=== PATIENT | female | born 1965 | race Caucasian/White ===

== ENCOUNTER 2019-02-15 16:44 | Emergency (ER) | payer MEDICAID, OTHER ==
[~2019-02-15] VITALS: Ht 167.6 cm; Wt 72.7 kg
[2019-02-15] MEDS ORDERED: normal saline 1000ML IV soln IVB ONE (17:05)
[2019-02-15 18:03] LABS: BASOPHILS % (AUTO) 0.2 % (0-1); EOSINOPHILS # (AUTO) 0.1 X10'3 (0-0.9); EOSINOPHILS % (AUTO) 0.8 % (0-6); HEMATOCRIT 35.8 % (35.0-45.0); HEMOGLOBIN 11.9 g/dl (12.0-16.0); LYMPHOCYTES # (AUTO) 0.5 X10'3 (1.1-4.8); LYMPHOCYTES % (AUTO) 4.9 % (21-51); MEAN CORPUSCULAR HEMOGLOBIN 26.5 PG (27.0-31.0); MEAN CORPUSCULAR HGB CONC 33.3 g/dL (33.0-36.5); MEAN CORPUSCULAR VOLUME 79.8 FL (78-98); MEAN PLATELET VOLUME 7.9 FL (7.4-10.4); MONOCYTES # (AUTO) 0.4 X10'3 (0-0.9); MONOCYTES % (AUTO) 4.1 % (2-12); NEUTROPHILS # (AUTO) 9.1 X10'3 (1.8-7.7); PLATELET COUNT 229 X10'3 (140-440); RED BLOOD COUNT 4.48 X10'6 (4.20-5.60); RED CELL DISTRIBUTION WIDTH 14.9 % (11.5-14.5); WHITE BLOOD COUNT 10.1 X10'3 (4.5-11.0)
[2019-02-15 18:26] LABS: D-DIMER 20.64 MG/L FEU (0-0.50); PARTIAL THROMBOPLASTIN TIME 23 SECONDS (22-32)
[2019-02-15 18:34] LABS: ALANINE AMINOTRANSFERASE 24 U/L (12-78); ALBUMIN 2.9 G/DL (3.4-5.0); ALBUMIN/GLOBULIN RATIO 0.6 (1.1-1.5); ALKALINE PHOSPHATASE 125 IU/L (46-116); ANION GAP 12 (8-16); ASPARTATE AMINO TRANSFERASE 18 U/L (10-37); BILIRUBIN,TOTAL 0.4 MG/DL (0.1-1.0); BLOOD UREA NITROGEN 15 MG/DL (7-18); BUN/CREATININE RATIO 55.6 (6.6-38.0); CALCIUM 8.6 MG/DL (8.5-10.1); CHLORIDE 104 MMOL/L (99-107); CREATININE 0.27 MG/DL (0.40-0.90); GLUCOSE 120 MG/DL (70-104); POTASSIUM 3.8 MMOL/L (3.5-5.1); SODIUM 139 MMOL/L (135-145); TOTAL CARBON DIOXIDE 22.7 MMOL/L (24-32); TOTAL PROTEIN 7.4 G/DL (6.4-8.2); eGFR > 90 ML/MIN
[2019-02-15] MEDS ORDERED: iohexol 350MG/ML 100ml bottle IV ONE (18:55)
[2019-02-15 21:19] LABS: CLARITY,URINE CLOUDY (Clear); COLOR,URINE YELLOW (Yellow); GLUCOSE, URINE NEGATIVE (Neg); KETONES,URINE 15 mg/dl (Neg); LEUKOCYTE ESTERASE ,URINE TRACE (Neg); NITRITES, URINE POSITIVE (Neg); OCCULT BLOOD,URINE TRACE-INTACT (Neg); PH,URINE 5.5 (4.8-8.0); PROTEIN,URINE TRACE mg/dl (Neg); UROBILINOGEN,URINE 0.2 E.U/dL (0.2-1.0)
[2019-02-15 21:20] LABS: UA COLLECTION TYPE STRAIGHT CATH
[2019-02-15 21:24] LABS: SQUAMOUS EPITHELIAL CELL,UR FEW /LPF (FEW)
[2019-02-15 21:25] LABS: BACTERIA,URINE 4+ /HPF (Neg); RBC,URINE 0-2 /HPF (0-2); TRANSITIONAL EPI CELLS,URINE FEW /HPF
[2019-02-15] MEDS ORDERED: CEPH-572 PO (21:45)
[2019-02-15] MEDS ORDERED: CefTRIAXone 2gm/D5W 50ml 50 ML IV ONE (21:45)
[2019-02-15] MEDS ORDERED: HYDROcodone/acetaminophen 10/325mg tab PO ONE (21:50)
[2019-02-15] MEDS ORDERED: morphine 4 MG/ML inj SYRINge IV ONE (22:05)
--- NOTE | 2019-02-15 22:05 | NUR ---
WHEN ADMINISTERING MEDICATION, PT STATES NORCO CAUSES HER URINARY RETENTION. MD VIDALES MADE AWARE AND ORDER CANCELLED. VERBAL ORDER FOR MORPHINE 4MG IV X1 DOSE ORDERED PER .
[2019-02-15] MEDS ORDERED: ondansetron/PF 4mg/2ml inj IV ONE (22:20)
--- NOTE | 2019-02-15 22:20 | NUR ---
[facility] [phone]
--- NOTE | 2019-02-15 23:04 | NUR ---
HAVE ATTEMPTED NUMEROUS TIMES TO CONTACT PT AND MOTHER-NEITHER ARE ANSWERING. RASHAD LANDON RN MADE AWARE.
[2019-02-16] MEDS ORDERED: ibuprofen tablet 400 MG TABLET PO ONE (00:40)
--- NOTE | 2019-02-16 00:48 | NUR ---
PT STATES SHES NOT ALLERGIC TO IBUPROFEN
[2019-02-16 02:05] VITALS: BP 104/65
== END 2019-02-16 02:07 | disposition home or self-care (01) ==
LOC: ER 16:44
DX: N39.0 Urinary tract infection, site not specified (principal); R06.00 Dyspnea, unspecified; R06.4 Hyperventilation; Z88.1 Allergy status to other antibiotic agents; Z88.6 Allergy status to analgesic agent; Z79.899 Other long term (current) drug therapy; Z79.82 Long term (current) use of aspirin
CPT/HCPCS: 36415; 71045; 71275; 80053; 81001; 83880; 84484; 85025; 85379; 85610; 85730; 87077; 87088; 87186; 93005; 96365; 96375; 99284; J0696; J2270; J2405; J7040; Q9967

== ENCOUNTER 2019-08-09 14:31 | Emergency (ER) | payer MEDICAID, OTHER ==
[~2019-08-09] VITALS: Ht 167.6 cm; Wt 73.0 kg
[2019-08-09] MEDS ORDERED: CefTRIAXone/D5W-Rocephin 1gm 50 ML IV ONE (14:55)
[2019-08-09] MEDS ORDERED: normal saline 1000ML IV soln IVB ONE (14:55)
[2019-08-09 15:34] LABS: BASOPHILS % (AUTO) 0.2 % (0-1); EOSINOPHILS # (AUTO) 0.4 X10'3 (0-0.9); HEMATOCRIT 39.6 % (35.0-45.0); HEMOGLOBIN 12.9 g/dl (12.0-16.0); LYMPHOCYTES # (AUTO) 1.2 X10'3 (1.1-4.8); LYMPHOCYTES % (AUTO) 17.1 % (21-51); MEAN CORPUSCULAR HEMOGLOBIN 25.4 PG (27.0-31.0); MEAN CORPUSCULAR HGB CONC 32.5 g/dL (33.0-36.5); MEAN CORPUSCULAR VOLUME 78.2 FL (78-98); MEAN PLATELET VOLUME 7.6 FL (7.4-10.4); MONOCYTES # (AUTO) 0.4 X10'3 (0-0.9); MONOCYTES % (AUTO) 6.2 % (2-12); NEUTROPHILS % (AUTO) 70.5 % (42-75); PLATELET COUNT 247 X10'3 (140-440); RED BLOOD COUNT 5.07 X10'6 (4.20-5.60); RED CELL DISTRIBUTION WIDTH 19.6 % (11.5-14.5); WHITE BLOOD COUNT 7.1 X10'3 (4.5-11.0)
[2019-08-09] MEDS ORDERED: diphenhydrAMINE 50 mg/ml inj IV ONE (15:35)
[2019-08-09] MEDS ORDERED: morphine 4 MG/ML inj SYRINge IV ONE (15:35)
[2019-08-09] MEDS ORDERED: dexamethasone sod phosphate 10mg/ml inj IV STA (15:35)
--- NOTE | 2019-08-09 15:45 | NUR ---
lima elliott notified that pt is difficult to access for iv. earl decided meds would be changed to im.
[2019-08-09] MEDS ORDERED: dexamethasone sod phosphate 10mg/ml inj IM STA (15:48)
[2019-08-09] MEDS ORDERED: CefTRIAXone 1000mg IM Kit (w/lidocaine diluent) IM ONE (15:50)
[2019-08-09] MEDS ORDERED: diphenhydrAMINE 25mg capsule PO ONE (15:50)
[2019-08-09] MEDS ORDERED: morphine 4 MG/ML inj SYRINge IM ONE (15:50)
[2019-08-09 15:51] LABS: ALANINE AMINOTRANSFERASE 11 U/L (12-78); ALBUMIN 3.1 G/DL (3.4-5.0); ALBUMIN/GLOBULIN RATIO 0.7 (1.1-1.5); ALKALINE PHOSPHATASE 162 IU/L (46-116); ANION GAP 12 (8-16); ASPARTATE AMINO TRANSFERASE 21 U/L (10-37); BILIRUBIN,TOTAL 0.2 MG/DL (0.1-1.0); BLOOD UREA NITROGEN 16 MG/DL (7-18); BUN/CREATININE RATIO 37.2 (6.6-38.0); CALCIUM 8.5 MG/DL (8.5-10.1); CHLORIDE 106 MMOL/L (99-107); CREATININE 0.43 MG/DL (0.40-0.90); GLUCOSE 134 MG/DL (70-104); POTASSIUM 3.7 MMOL/L (3.5-5.1); SODIUM 143 MMOL/L (135-145); TOTAL CARBON DIOXIDE 25.4 MMOL/L (24-32); TOTAL PROTEIN 7.4 G/DL (6.4-8.2); eGFR > 90 ML/MIN
[2019-08-09] MEDS ORDERED: TRIA15CR61 TOP (16:08)
[2019-08-09] MEDS ORDERED: CEPH250T PO (16:08)
[2019-08-09] MEDS ORDERED: HYDROcodone/acetaminophen 5mg/325mg tablet PO ONE (16:20)
[2019-08-09 16:49] VITALS: BP 105/73
[2019-08-09 19:05] LABS: PLATELET ESTIMATE NORMAL
[2019-08-09 19:07] LABS: ANISOCYTOSIS 2+; MICROCYTOSIS 1+
== END 2019-08-09 16:52 | disposition home or self-care (01) ==
LOC: ER 14:31
DX: R21 Rash and other nonspecific skin eruption (principal); Z98.890 Other specified postprocedural states; Z88.1 Allergy status to other antibiotic agents; Z88.8 Allergy status to other drugs, medicaments and biological substances; Z79.899 Other long term (current) drug therapy
CPT/HCPCS: 36415; 80053; 85025; 96372; 99284; J0696; J1100; Q0163

== ENCOUNTER → 2019-09-29 | Emergency (ER) | payer MEDICAID ==
[~2019-09-29] VITALS: Ht 167.6 cm; Wt 68.0 kg
[~2019-09-29] MED LIST: PERM60CR19 TOP; diphenhydrAMINE 2%/zinc acetate cream TP STA
[2019-09-29 15:38] VITALS: BP 112/77
--- NOTE | 2019-09-29 17:08 | NUR ---
[facility] CALLED FOR TRANSPORT, NOT AT [facility]. WILL CALL BACK WITH ETA.
== END | disposition home or self-care (01) ==
LOC: ER 15:35
DX: R21 Rash and other nonspecific skin eruption (principal); L29.9 Pruritus, unspecified; Z98.890 Other specified postprocedural states; Z88.1 Allergy status to other antibiotic agents; Z88.8 Allergy status to other drugs, medicaments and biological substances; Z79.899 Other long term (current) drug therapy
CPT/HCPCS: 99284

== ENCOUNTER 2019-10-05 12:44 | Emergency (ER) | payer MEDICAID ==
[~2019-10-05] VITALS: Ht 167.6 cm; Wt 68.2 kg
[~2019-10-05 12:44] MED LIST changes: -diphenhydrAMINE 2%/zinc acetate cream TP STA
[2019-10-05] MEDS ORDERED: dexamethasone sod phosphate 10mg/ml inj IM STA (14:09)
[2019-10-05] MEDS ORDERED: diphenhydrAMINE 50 mg/ml inj IM ONE (14:10)
[2019-10-05] MEDS ORDERED: morphine 4 MG/ML inj SYRINge IM ONE (14:10)
[2019-10-05] MEDS ORDERED: CefTRIAXone 1000mg IM Kit (w/lidocaine diluent) IM ONE (14:10)
[2019-10-05] MEDS ORDERED: ondansetron 4mg rapidly disintigrating tab PO ONE (14:10)
[2019-10-05] MEDS ORDERED: BACDS PO (14:14)
[2019-10-05] MEDS ORDERED: TRIA15CR61 TOP (14:14)
[2019-10-05 14:44] LABS: BASOPHILS % (AUTO) 0.1 % (0-1); EOSINOPHILS # (AUTO) 0.8 X10'3 (0-0.9); EOSINOPHILS % (AUTO) 8.7 % (0-6); HEMATOCRIT 46.1 % (35.0-45.0); HEMOGLOBIN 15.1 g/dl (12.0-16.0); LYMPHOCYTES # (AUTO) 1.5 X10'3 (1.1-4.8); LYMPHOCYTES % (AUTO) 16.9 % (21-51); MEAN CORPUSCULAR HEMOGLOBIN 26.4 PG (27.0-31.0); MEAN CORPUSCULAR HGB CONC 32.7 g/dL (33.0-36.5); MEAN CORPUSCULAR VOLUME 80.7 FL (78-98); MEAN PLATELET VOLUME 7.4 FL (7.4-10.4); MONOCYTES # (AUTO) 0.3 X10'3 (0-0.9); MONOCYTES % (AUTO) 3.6 % (2-12); NEUTROPHILS # (AUTO) 6.2 X10'3 (1.8-7.7); NEUTROPHILS % (AUTO) 70.7 % (42-75); PLATELET COUNT 252 X10'3 (140-440); RED BLOOD COUNT 5.71 X10'6 (4.20-5.60); WHITE BLOOD COUNT 8.8 X10'3 (4.5-11.0)
--- NOTE | 2019-10-05 15:29 | NUR ---
WOUND SWAB OBTAINED FROM FLUID FILLED LESION ON ABDOMEN. MEDS GIVEN ORDERED.
[2019-10-05 16:14] VITALS: BP 112/67
== END 2019-10-05 16:20 | disposition home or self-care (01) ==
LOC: ER 12:45
DX: R21 Rash and other nonspecific skin eruption (principal); L12.9 Pemphigoid, unspecified; Z87.440 Personal history of urinary (tract) infections; Z98.890 Other specified postprocedural states; Z88.1 Allergy status to other antibiotic agents; Z88.8 Allergy status to other drugs, medicaments and biological substances; Z79.2 Long term (current) use of antibiotics; Z79.899 Other long term (current) drug therapy
CPT/HCPCS: 36415; 85025; 87070; 87077; 96372; 99284; J0696; J1100; J1200; J2270; 87185; 87186

== ENCOUNTER 2019-10-11 09:02 | Emergency (ER) | payer MEDICAID ==
[~2019-10-11] VITALS: Ht 170.2 cm; Wt 85.0 kg
[~2019-10-11 09:02] MED LIST changes: +BACDS PO; +TRIA15CR61 TOP
[2019-10-11] MEDS ORDERED: dexamethasone sod phosphate 10mg/ml inj IM STA (10:28)
[2019-10-11] MEDS ORDERED: morphine 10mg/ml inj. IM ONE (10:30)
[2019-10-11] MEDS ORDERED: ondansetron 4mg rapidly disintigrating tab PO ONE (10:30)
[2019-10-11 11:06] LABS: BASOPHILS % (AUTO) 0.5 % (0-1); EOSINOPHILS # (AUTO) 1.1 X10'3 (0-0.9); EOSINOPHILS % (AUTO) 12.4 % (0-6); HEMATOCRIT 44.1 % (35.0-45.0); HEMOGLOBIN 14.6 g/dl (12.0-16.0); LYMPHOCYTES # (AUTO) 1.7 X10'3 (1.1-4.8); LYMPHOCYTES % (AUTO) 19.7 % (21-51); MEAN CORPUSCULAR HEMOGLOBIN 26.9 PG (27.0-31.0); MEAN CORPUSCULAR VOLUME 81.5 FL (78-98); MEAN PLATELET VOLUME 7.7 FL (7.4-10.4); MONOCYTES # (AUTO) 0.4 X10'3 (0-0.9); MONOCYTES % (AUTO) 4.7 % (2-12); NEUTROPHILS # (AUTO) 5.5 X10'3 (1.8-7.7); NEUTROPHILS % (AUTO) 62.7 % (42-75); PLATELET COUNT 281 X10'3 (140-440); RED BLOOD COUNT 5.41 X10'6 (4.20-5.60); RED CELL DISTRIBUTION WIDTH 18.4 % (11.5-14.5); WHITE BLOOD COUNT 8.7 X10'3 (4.5-11.0)
[2019-10-11 11:16] LABS: PARTIAL THROMBOPLASTIN TIME 29 SECONDS (22-32)
[2019-10-11 11:19] LABS: ALANINE AMINOTRANSFERASE 25 U/L (12-78); ALBUMIN 3.5 G/DL (3.4-5.0); ALBUMIN/GLOBULIN RATIO 0.9 (1.1-1.5); ALKALINE PHOSPHATASE 134 IU/L (46-116); ANION GAP 10 (8-16); ASPARTATE AMINO TRANSFERASE 23 U/L (10-37); BILIRUBIN,TOTAL 0.2 MG/DL (0.1-1.0); BLOOD UREA NITROGEN 23 MG/DL (7-18); BUN/CREATININE RATIO 35.4 (6.6-38.0); CALCIUM 8.6 MG/DL (8.5-10.1); CHLORIDE 104 MMOL/L (99-107); CREATININE 0.65 MG/DL (0.40-0.90); GLUCOSE 80 MG/DL (70-104); MAGNESIUM 2.3 MG/DL (1.5-2.4); SODIUM 138 MMOL/L (135-145); TOTAL CARBON DIOXIDE 23.9 MMOL/L (24-32); TOTAL PROTEIN 7.3 G/DL (6.4-8.2); eGFR > 90 ML/MIN
--- NOTE | 2019-10-11 11:30 | NUR ---
Patient asked the EDT Fausto to remove the coban dressing from her wrist. This nurse entered the room and removed the coban dressing from the right wrist where the lab draw site was. She reports the dressing was applied on one of her hives and is painful. No hives or excoriation noted at the site of the peripheral lab draw site. Pt reports the pain medication she received did not help and she is reporting her pain is unchanged. Explained to the patient that we gave her 6 mg IM morphine. She stated "I am not sure of the exact dose but it did not help my pain and they usually give me dilaudid." Explained to the patient that we are a dilaudid-free emergency department and we do not give dilaudid for pain in the ED. Pt stated "I cannot live off of benadryl all the time and the medications are not helping me." Provider REGINALDO Campoverde notified of the above conversation.
[2019-10-11] MEDS ORDERED: PRED20TA PO (11:34)
[2019-10-11] MEDS ORDERED: DOXY100C76 PO (11:38)
[2019-10-11] MEDS ORDERED: LACT1CAP65 PO (11:38)
--- NOTE | 2019-10-11 11:49 | NUR ---
REGINALDO Augustine spoke with the patient about the findings, plan of care and need to follow up with a primary care provider and activity therapy specialist as an outpatient. Pt given a provider list for [facility] with providers that accept [facility]. [facility] phoned to arrange gurney transport for the patient to get back to her residence. ETA for [facility] is apprxomately [phone].
[2019-10-11] MEDS ORDERED: oxyCODONE/APAP 5-325mg tablet PO ONE (11:50)
--- NOTE | 2019-10-11 12:20 | NUR ---
Upon this nurse entering the room to give the patient her pain medication, she stated "what is wrong with you people and this hospital?" She continued to state "I want to know who ordered my transportation to home, I am paralyzed and cannot be transported via w/c. I always get transported via gurney with [facility]!" Pt stated "I am going to get my pain medication then go home and call my booster operator because I am tired of this hospital not treating me appropriately." "They diagnosed me incorrectly and have not been treating me correctly." Encouraged the patient again to establish primary care to adequately manage her symptoms and ongoing conditions. Pt asked to speak with the charge nurse so she can file a grievance. Charge nurse asked to come to the room.
--- NOTE | 2019-10-11 12:32 | NUR ---
[facility] CALLED FOR TRANSPORT, WILL BE HERE WITHIN THE HOUR.
[2019-10-11 12:54] VITALS: BP 125/89
== END 2019-10-11 12:50 | disposition home or self-care (01) ==
LOC: ER 09:03
DX: S70.322A Blister (nonthermal), left thigh, initial encounter (principal); S70.321A Blister (nonthermal), right thigh, initial encounter; L98.429 Non-pressure chronic ulcer of back with unspecified severity; R21 Rash and other nonspecific skin eruption; G82.50 Quadriplegia, unspecified; Z98.890 Other specified postprocedural states; Z88.1 Allergy status to other antibiotic agents; Z88.8 Allergy status to other drugs, medicaments and biological substances; Z79.899 Other long term (current) drug therapy; X58.XXXA Exposure to other specified factors, initial encounter; Y93.89 Activity, other specified; Y92.89 Other specified places as the place of occurrence of the external cause; Y99.8 Other external cause status; R79.1 Abnormal coagulation profile
CPT/HCPCS: 36415; 80053; 83605; 83735; 84145; 85025; 85610; 85730; 87040; 96372; 99284; J1100; J2270

== ENCOUNTER 2019-12-26 02:42 | Emergency (ER) | payer MEDICAID ==
[~2019-12-26] VITALS: Ht 167.6 cm; Wt 70.9 kg
[~2019-12-26 02:42] MED LIST changes: -BACDS PO; +LACT1CAP65 PO; -PERM60CR19 TOP; -TRIA15CR61 TOP
[2019-12-26] MEDS ORDERED: morphine 4 MG/ML inj SYRINge IV ONE ×3 (04:00→08:10)
[2019-12-26 04:53] LABS: ALANINE AMINOTRANSFERASE 22 U/L (12-78); ALBUMIN/GLOBULIN RATIO 1.1 (1.1-1.5); ALKALINE PHOSPHATASE 105 IU/L (46-116); ANION GAP 9 (8-16); ASPARTATE AMINO TRANSFERASE 20 U/L (10-37); BILIRUBIN,TOTAL 0.5 MG/DL (0.1-1.0); BLOOD UREA NITROGEN 17 MG/DL (7-18); BUN/CREATININE RATIO 35.4 (6.6-38.0); CALCIUM 8.8 MG/DL (8.5-10.1); CHLORIDE 102 MMOL/L (99-107); CREATININE 0.48 MG/DL (0.40-0.90); GLUCOSE 86 MG/DL (70-104); POTASSIUM 3.9 MMOL/L (3.5-5.1); SODIUM 137 MMOL/L (135-145); TOTAL CARBON DIOXIDE 26.5 MMOL/L (24-32); TOTAL PROTEIN 7.8 G/DL (6.4-8.2); eGFR > 90 ML/MIN
[2019-12-26 04:54] LABS: PARTIAL THROMBOPLASTIN TIME 31 SECONDS (22-32)
[2019-12-26 04:56] LABS: BASOPHILS % (AUTO) 0.1 % (0-1); EOSINOPHILS # (AUTO) 0.1 X10'3 (0-0.9); EOSINOPHILS % (AUTO) 1.7 % (0-6); HEMATOCRIT 44.4 % (35.0-45.0); HEMOGLOBIN 14.7 g/dl (12.0-16.0); LYMPHOCYTES # (AUTO) 1.9 X10'3 (1.1-4.8); LYMPHOCYTES % (AUTO) 34.4 % (21-51); MEAN CORPUSCULAR HEMOGLOBIN 28.6 PG (27.0-31.0); MEAN CORPUSCULAR HGB CONC 33.1 g/dL (33.0-36.5); MEAN CORPUSCULAR VOLUME 86.2 FL (78-98); MEAN PLATELET VOLUME 7.7 FL (7.4-10.4); MONOCYTES # (AUTO) 0.3 X10'3 (0-0.9); MONOCYTES % (AUTO) 6.1 % (2-12); NEUTROPHILS # (AUTO) 3.1 X10'3 (1.8-7.7); NEUTROPHILS % (AUTO) 57.7 % (42-75); PLATELET COUNT 220 X10'3 (140-440); RED BLOOD COUNT 5.16 X10'6 (4.20-5.60); RED CELL DISTRIBUTION WIDTH 19.5 % (11.5-14.5); WHITE BLOOD COUNT 5.4 X10'3 (4.5-11.0)
[2019-12-26] MEDS ORDERED: LEVO100T PO (05:50)
--- NOTE | 2019-12-26 05:51 | NUR ---
pt asking for more pain medication rates pain 11/[address] Hemphill about pain .
[2019-12-26 05:52] LABS: CLARITY,URINE CLOUDY (Clear); COLOR,URINE YELLOW (Yellow); GLUCOSE, URINE NEGATIVE (Neg); KETONES,URINE NEGATIVE (Neg); LEUKOCYTE ESTERASE ,URINE MODERATE (Neg); NITRITES, URINE POSITIVE (Neg); OCCULT BLOOD,URINE SMALL (Neg); PH,URINE 7.5 (4.8-8.0); PROTEIN,URINE 30 mg/dl (Neg)
[2019-12-26 05:57] LABS: UA COLLECTION TYPE STRAIGHT CATH
[2019-12-26 05:58] LABS: RBC,URINE 0-2 /HPF (0-2); WBC,URINE 50-100 /HPF (0-4)
[2019-12-26 05:59] LABS: BACTERIA,URINE 4+ /HPF (Neg); MUCUS STRANDS NONE SEEN /LPF (Neg); SQUAMOUS EPITHELIAL CELL,UR FEW /LPF (FEW)
[2019-12-26] MEDS ORDERED: normal saline 1000ml 1,000 ML IV ONE (06:00)
[2019-12-26 08:00] LABS: PLATELET ESTIMATE NORMAL
[2019-12-26 08:01] LABS: ANISOCYTOSIS 2+
[2019-12-26] MEDS ORDERED: ondansetron/PF 4mg/2ml inj IV ONE (08:10)
[2019-12-26] MEDS ORDERED: ONDA4TAB6 PO (08:31)
[2019-12-26] MEDS ORDERED: HYDR-4353 PO (08:31)
--- NOTE | 2019-12-26 08:52 | NUR ---
called pt as pt is d/c ,as per he is not home and can not pick up attendant pt and she might need [facility] ride back home.as per thats what they usually do.
--- NOTE | 2019-12-26 09:13 | NUR ---
frieda charge nurse spoke to the pt connie adoption social worker is going to see the pt ,not called [facility] yet as pt has to see adoption social worker and going to be at home after 1-2 hr .charge nurse frieda is aware and also automobile spring repairermarcy lo.pt brant taken out pt has daipper on ,no distress noted ,will cont to monitor.
[2019-12-26 10:51] VITALS: BP 142/92
--- NOTE | 2019-12-26 19:24 | NUR ---
PT CALED AND NOTIFIED THAT SHE WAS DISCHARGED AND LEFT BEHIND DISCHARGE INSTRUCTINS AND RX FOR PAIN AND NAUSEA. PT INFORMED THAT PAIN MEDICATION WAS FOR NORCO 10/325MG AND ZOFRAN 4MG. PT DECLINED THE NORCO STATING THAT IT CAUSES HER "BLADDER TO LOCK UP". PT DID WANT THE ZOFRAN AND RX WAS CALLED INTO [facility] IN [place]. PT NOTIFIED THAT RX WAS CALLED IN AND THAT HER WOULD HAVE TO PICK IT UP.
== END 2019-12-26 10:53 | disposition home or self-care (01) ==
LOC: ER 02:42
DX: S72.042A Displaced fracture of base of neck of left femur, initial encounter for closed fracture (principal); M25.552 Pain in left hip; Z88.1 Allergy status to other antibiotic agents; Z88.5 Allergy status to narcotic agent; Z79.899 Other long term (current) drug therapy; Z98.890 Other specified postprocedural states; X58.XXXA Exposure to other specified factors, initial encounter; Y93.89 Activity, other specified; Y92.89 Other specified places as the place of occurrence of the external cause; Y99.8 Other external cause status
CPT/HCPCS: 36415; 71045; 73502; 80053; 81001; 85025; 85610; 85730; 86885; 86900; 86901; 87077; 87088; 87186; 93005; 96361; 96374; 96375; 96376; 99285; J2270; J2405; J7030; 85008

== ENCOUNTER 2020-05-17 08:09 | Emergency (ER) | payer MEDICAID ==
[~2020-05-17] VITALS: Ht 162.6 cm; Wt 73.2 kg
[~2020-05-17 08:09] MED LIST changes: -LACT1CAP65 PO; +LEVO100T PO; +ONDA4TAB6 PO
[2020-05-17] MEDS ORDERED: morphine oral 20mg/ml (conc. morphine) 1ml oral syringe PO PRN (08:40)
[2020-05-17 09:13] LABS: BASOPHILS % (AUTO) 0.7 % (0-1); EOSINOPHILS # (AUTO) 0.1 X10'3 (0-0.9); EOSINOPHILS % (AUTO) 1.7 % (0-6); HEMATOCRIT 46.8 % (35.0-45.0); HEMOGLOBIN 15.5 g/dl (12.0-16.0); LYMPHOCYTES # (AUTO) 1.5 X10'3 (1.1-4.8); LYMPHOCYTES % (AUTO) 24.2 % (21-51); MEAN CORPUSCULAR HEMOGLOBIN 27.3 PG (27.0-31.0); MEAN CORPUSCULAR HGB CONC 33.1 g/dL (33.0-36.5); MEAN CORPUSCULAR VOLUME 82.4 FL (78-98); MEAN PLATELET VOLUME 7.8 FL (7.4-10.4); MONOCYTES # (AUTO) 0.3 X10'3 (0-0.9); MONOCYTES % (AUTO) 4.3 % (2-12); NEUTROPHILS # (AUTO) 4.4 X10'3 (1.8-7.7); NEUTROPHILS % (AUTO) 69.1 % (42-75); PLATELET COUNT 185 X10'3 (140-440); RED BLOOD COUNT 5.68 X10'6 (4.20-5.60); RED CELL DISTRIBUTION WIDTH 14.3 % (11.5-14.5); WHITE BLOOD COUNT 6.4 X10'3 (4.5-11.0)
[2020-05-17 09:21] LABS: CLARITY,URINE TURBID (Clear); COLOR,URINE YELLOW (Yellow); GLUCOSE, URINE NEGATIVE (Neg); KETONES,URINE 15 mg/dl (Neg); LEUKOCYTE ESTERASE ,URINE TRACE (Neg); NITRITES, URINE POSITIVE (Neg); OCCULT BLOOD,URINE TRACE-LYSED (Neg); PH,URINE 5.5 (4.8-8.0); PROTEIN,URINE NEGATIVE (Neg); UROBILINOGEN,URINE 0.2 E.U/dL (0.2-1.0)
[2020-05-17 09:29] LABS: UA COLLECTION TYPE STRAIGHT CATH
[2020-05-17 09:32] LABS: SQUAMOUS EPITHELIAL CELL,UR MANY /LPF (FEW)
[2020-05-17 09:33] LABS: BACTERIA,URINE 3+ /HPF (Neg); WBC CLUMPS,URINE FEW /HPF (NEGATIVE)
[2020-05-17] MEDS: morphine 10mg/0.5ml (conc. morphine) oral syringe PO PRN ×2 (09:33→10:37)
[2020-05-17 09:35] LABS: WBC,URINE 20-30 /HPF (0-4)
[2020-05-17 09:38] LABS: ALBUMIN 3.7 G/DL (3.4-5.0); ANION GAP 11 (8-16); BLOOD UREA NITROGEN 17 MG/DL (7-18); CALCIUM 8.7 MG/DL (8.5-10.1); CHLORIDE 102 MMOL/L (99-107); GLUCOSE 78 MG/DL (70-104); POTASSIUM 4.3 MMOL/L (3.5-5.1); SODIUM 139 MMOL/L (135-145); TOTAL CARBON DIOXIDE 25.9 MMOL/L (24-32)
[2020-05-17] MEDS ORDERED: CefTRIAXone/D5W-Rocephin 1gm 50 ML IV ONE (09:45)
[2020-05-17 09:49] LABS: BUN/CREATININE RATIO 60.7 (6.6-38.0); CREATININE 0.28 MG/DL (0.40-0.90); eGFR > 90 ML/MIN
[2020-05-17] MEDS ORDERED: CefTRIAXone 1000mg IM Kit (w/lidocaine diluent) IM ONE (09:50)
[2020-05-17] MEDS ORDERED: CEFD300C3 PO (09:53)
[2020-05-17] MEDS ORDERED: LEVO100T PO (10:46)
--- NOTE | 2020-05-17 12:40 | NUR ---
ASKING FOR PRECRIPTION FOR [facility], WILL NOTIFY PROVIDER.
--- NOTE | 2020-05-17 13:00 | NUR ---
WILL MOVE PATIENT TO [facility] WAITING FOR [facility] TRANSFER.
[2020-05-17 14:17] VITALS: BP 137/82
== END 2020-05-17 15:00 | disposition home or self-care (01) ==
LOC: ER 08:09
DX: N39.0 Urinary tract infection, site not specified (principal); E03.9 Hypothyroidism, unspecified; R10.84 Generalized abdominal pain; R42 Dizziness and giddiness; Z98.890 Other specified postprocedural states; Z88.1 Allergy status to other antibiotic agents; Z88.8 Allergy status to other drugs, medicaments and biological substances; Z79.2 Long term (current) use of antibiotics; Z79.899 Other long term (current) drug therapy
CPT/HCPCS: 36415; 80048; 81001; 84439; 84443; 85025; 87088; 87186; 96372; 99283; J0696; 87077

== ENCOUNTER 2020-07-13 09:37 | Emergency (ER) | payer MEDICAID ==
[~2020-07-13] VITALS: Ht 167.6 cm; Wt 68.2 kg
[2020-07-13] MEDS ORDERED: oxyCODONE/APAP 5-325mg tablet PO ONE ×2 (09:45→13:05)
[2020-07-13 09:46] VITALS: BP 126/111
[2020-07-13 11:14] LABS: BASOPHILS % (AUTO) 0.8 % (0-1); EOSINOPHILS # (AUTO) 0.1 X10'3 (0-0.9); HEMATOCRIT 39.9 % (35.0-45.0); LYMPHOCYTES # (AUTO) 1.2 X10'3 (1.1-4.8); LYMPHOCYTES % (AUTO) 25.2 % (21-51); MEAN CORPUSCULAR HGB CONC 32.5 g/dL (33.0-36.5); MEAN PLATELET VOLUME 8.1 FL (7.4-10.4); MONOCYTES # (AUTO) 0.3 X10'3 (0-0.9); PLATELET COUNT 207 X10'3 (140-440); RED BLOOD COUNT 4.81 X10'6 (4.20-5.60); RED CELL DISTRIBUTION WIDTH 15.3 % (11.5-14.5); WHITE BLOOD COUNT 4.7 X10'3 (4.5-11.0)
[2020-07-13 11:16] LABS: CLARITY,URINE SLIGHTLY CLOUDY (Clear); COLOR,URINE YELLOW (Yellow); GLUCOSE, URINE NEGATIVE (Neg); KETONES,URINE NEGATIVE (Neg); LEUKOCYTE ESTERASE ,URINE SMALL (Neg); NITRITES, URINE POSITIVE (Neg); OCCULT BLOOD,URINE NEGATIVE (Neg); PROTEIN,URINE NEGATIVE (Neg)
[2020-07-13 11:19] LABS: ALANINE AMINOTRANSFERASE 14 U/L (12-78); ALBUMIN 2.9 G/DL (3.4-5.0); ALBUMIN/GLOBULIN RATIO 0.8 (1.1-1.5); ALKALINE PHOSPHATASE 98 IU/L (46-116); ANION GAP 7 (8-16); ASPARTATE AMINO TRANSFERASE 9 U/L (10-37); BILIRUBIN,TOTAL 0.3 MG/DL (0.1-1.0); BLOOD UREA NITROGEN 17 MG/DL (7-18); BUN/CREATININE RATIO 54.8 (6.6-38.0); CALCIUM 8.8 MG/DL (8.5-10.1); CHLORIDE 108 MMOL/L (99-107); CREATININE 0.31 MG/DL (0.40-0.90); GLUCOSE 123 MG/DL (70-104); SODIUM 145 MMOL/L (135-145); TOTAL CARBON DIOXIDE 29.7 MMOL/L (24-32); TOTAL PROTEIN 6.6 G/DL (6.4-8.2); eGFR > 90 ML/MIN
[2020-07-13 11:57] LABS: UA COLLECTION TYPE STRAIGHT CATH
[2020-07-13 11:58] LABS: BACTERIA,URINE 4+ /HPF (Neg); MUCUS STRANDS NONE SEEN /LPF (Neg); RBC,URINE NONE SEEN /HPF (0-2); SQUAMOUS EPITHELIAL CELL,UR MANY /LPF (FEW); WBC,URINE 0-4 /HPF (0-4)
[2020-07-13] MEDS ORDERED: cephalexin 250mg capsule PO ONE (12:15)
[2020-07-13] MEDS ORDERED: CEPH-585 PO (12:19)
== END 2020-07-13 16:00 | disposition home or self-care (01) ==
LOC: ER 09:37
DX: N39.0 Urinary tract infection, site not specified (principal); M54.5 Low back pain; E07.9 Disorder of thyroid, unspecified; Z87.440 Personal history of urinary (tract) infections; Z88.1 Allergy status to other antibiotic agents; Z88.6 Allergy status to analgesic agent; Z88.8 Allergy status to other drugs, medicaments and biological substances; Z79.899 Other long term (current) drug therapy
CPT/HCPCS: 36415; 71045; 80053; 81001; 85025; 87077; 87088; 87186; 99284